=== PATIENT | male | born 1960 | race Caucasian/White ===

== ENCOUNTER 2022-01-05 07:27 | Day surgery (SDC) | payer OTHER ==
[2022-01-05] MEDS ORDERED: Sodium Chloride 0.9% 10 ML Syringe FLUSH PRN (08:00)
[2022-01-05] MEDS: Lactated Ringers 1,000 ML IV SCH (08:17)
[2022-01-05] MEDS ORDERED: Lidocaine 2% 5 ML SDV ONE (09:27)
[2022-01-05] MEDS ORDERED: Propofol 200 MG/20 ML SDV ONE (09:27)
[2022-01-05] MEDS ORDERED: Glycopyrrolate 0.2 MG/ML SDV ONE (09:27)
[2022-01-05] MEDS ORDERED: Midazolam 1 MG/ML 2 ML SDV ONE (09:27)
[2022-01-05] MEDS: EPINEPHrine 1:10,000 1 MG/10 ML Syringe ONE (09:44)
[2022-01-05] MEDS ORDERED: EPINEPHrine 1:10,000 1 MG/10 ML Syringe ONE (09:44)
[2022-01-05 13:38] VITALS: BP 121/71; PULSE 74
== END 2022-01-05 11:35 | disposition home or self-care (01) ==
LOC: KA.SDS 07:27
PROVIDERS: ATTEND Family Medicine
DX: K29.60 Other gastritis without bleeding (principal); K25.9 Gastric ulcer, unspecified as acute or chronic, without hemorrhage or perforation; K20.90 Esophagitis, unspecified without bleeding; B37.9 Candidiasis, unspecified; J45.909 Unspecified asthma, uncomplicated; Z88.0 Allergy status to penicillin; Z91.030 Bee allergy status; Z91.018 Allergy to other foods; Z91.012 Allergy to eggs; Z91.041 Radiographic dye allergy status; Z91.010 Allergy to peanuts; Z91.013 Allergy to seafood; Z79.899 Other long term (current) drug therapy; Z79.51 Long term (current) use of inhaled steroids; Z01.812 Encounter for preprocedural laboratory examination; Z20.822 Contact with and (suspected) exposure to COVID-19
CPT/HCPCS: 00731; J0171; J2250; J2704; J3490; J7120; U0002